=== PATIENT | female | born 1940 | race Caucasian/White ===

== ENCOUNTER → 2017-02-28 | Outpatient (CLI) | payer MEDICARE ==
[~2017-02-28] MED LIST: COATED ASPIRIN325 M1 PO; LIPITOR; LISINOPRIL PO; LISINOPRIL20 MG PO; ZOCOR PO
--- NOTE | ~2017-02-28 | EKG ---
PATIENT: MIRANDA CONTRERAS UNIT #: [id number] Ventricular Rate: 66 BPM Atrial Rate: 66 BPM P-R Interval: 148 ms QRS Duration: 78 ms Q-T Interval: 356 ms QTC Calculation(Bezet): 373 ms P [place]: 69 degrees Calculated R [place]: 19 degrees Calculated T [place]: 22 degrees Diagnosis Line: Normal sinus rhythm Diagnosis Line: ST and T wave abnormality, consider anterior Diagnosis Line: ischemia Diagnosis Line: Abnormal ECG Baseline wander Diagnosis Line: When compared with ECG of 15-AUG-2016 09:09, Diagnosis Line: No significant change was found Diagnosis Line: Confirmed by CLIFF PALMA MD ([id number]) on 03/02/2017 Diagnosis Line: 7:02:03 PM INTERPRETING MD: MINERVA MOONEY
[2017-02-28 10:48] LABS: BUN/CREATININE RATIO 23.84; CALCIUM SERUM 9.6 mg/dL (8.4-10.2); CREATININE SERUM 1.3 mg/dL (0.6-1.4); GLOM FILT RATE Estimated 40.1 mL/min (>60); POTASSIUM 4.1 mmol/L (3.5-5.1)
[2017-02-28 10:54] LABS: HEMATOCRIT 31.1 % (35.0-45.0); HEMOGLOBIN 10.7 gm/dL (12.0-16.0); MEAN CELL VOLUME 87.5 FL (83-96); MEAN CORPUSCULAR HGB CONC 34.2 g/dL (30-36); RED BLOOD COUNT 3.56 X10e (3.90-5.30); RED CELL DISTRIBUTION WIDTH 14.7 % (11.0-15.5); WHITE BLOOD COUNT 7.9 X10e3 (4.0-10.5)
== END | disposition home or self-care (01) ==
LOC: SLABONLY 10:00
PROVIDERS: Urology
DX: Z01.818 Encounter for other preprocedural examination (principal); N81.11 Cystocele, midline; R94.31 Abnormal electrocardiogram [ECG] [EKG]
CPT/HCPCS: 36415; 80048; 85027; 93005